=== PATIENT | female | born 1995 | race Two or more races ===

== ENCOUNTER 2018-12-20 11:28 | Emergency (ER) | payer MEDICAID ==
[~2018-12-20] VITALS: Ht 160 cm; Wt 109.0 kg
[2018-12-20 11:41] VITALS: BP 132/85
[2018-12-20] MEDS ORDERED: SODIUM CHLORIDE 0.9% 1,000 ML IV ONE (12:30)
[2018-12-20 13:26] LABS: CHLORIDE 109 mEq/L (98-107)
== END 2018-12-20 14:04 | disposition left against medical advice (07) ==
LOC: ER 11:28
DX: R10.30 Lower abdominal pain, unspecified (principal)
CPT/HCPCS: 36415; 80048; 81025; 96360; 99283; J7030